=== PATIENT | female | born 1950 | race Caucasian/White ===

== ENCOUNTER 2023-05-09 07:00 | Inpatient (IN) | payer MEDICARE, OTHER, SELFPAY ==
[~2023-05-09] VITALS: Ht 160 cm; Wt 60.2 kg
[2023-05-09] MEDS ORDERED: PRED20TA PO (07:11)
[2023-05-09] MEDS ORDERED: FUROSEMIDE 20MG/2ML VIAL IV ONE ×2 (09:30→12:00)
[2023-05-09] MEDS ORDERED: DIGOXIN INJ 0.5 MG/2 ML AMP IV STA ×2 (09:30→15:29)
[2023-05-09] MEDS: METOPROLOL 5 MG/5 ML VIAL IV SCH ×3 (09:42→11:43)
[2023-05-09 09:49] LABS: BASO % 0.2 % (0.0-1.0); EOS % 0.1 % (0.0-3.0); HEMATOCRIT 52.4 % (36.0-47.0); HEMOGLOBIN 16.7 g/dl (12.0-15.5); LYMPH % 23.2 % (24.0-44.0); MEAN CORPUSCULAR HEMOGLOBIN 29.5 pg (27.0-33.0); MEAN CORPUSCULAR HGB CONC 31.9 g/dl (32.0-36.5); MEAN CORPUSCULAR VOLUME 92.6 fl (80.0-96.0); MONO # 1.2 10^3/uL (0.0-0.8); MONO % 9.4 % (2.0-8.0); NEUTROPHILS # 8.7 10^3/uL (1.5-8.5); NEUTROPHILS % 66.4 % (36.0-66.0); PLATELET COUNT, AUTOMATED 291 10^3/uL (150-450); RED BLOOD COUNT 5.66 10^6/uL (4.00-5.40)
[2023-05-09] MEDS ORDERED: ISOVUE-370 76% 100ML VIAL As Ordered ONE (09:55)
[2023-05-09 09:56] LABS: INR 1.21; PROTHROMBIN TIME 14.9 SECONDS (12.5-14.5)
[2023-05-09 10:08] LABS: CK-MB VALUE MASS 2.3 NG/ML (<3.6)
[2023-05-09 10:12] LABS: THYROID STIMULATING HORMONE 1.293 uIU/ML (0.55-4.78); THYROXINE (T4) 8.9 UG/DL (4.5-10.9)
[2023-05-09] MEDS ORDERED: MED REC IN PROGRESS XX SCH (10:15)
[2023-05-09 10:17] LABS: MB/CK RELATIVE INDEX 3.48 (< OR =4)
[2023-05-09] MEDS ORDERED: MED REC CURRENTLY UNOBTAINABLE XX SCH (10:20)
[2023-05-09] MEDS ORDERED: FERR325T82 PO (12:26)
[2023-05-09] MEDS ORDERED: FISH1CAP26 PO (12:26)
[2023-05-09] MEDS ORDERED: HOME MED LIST COMPLETE! XX SCH (12:35)
[2023-05-09 16:32] LABS: MAGNESIUM LEVEL 2.2 MG/DL (1.8-2.4)
[2023-05-09 16:33] LABS: BLOOD UREA NITROGEN 38 MG/DL (9-23); CALCIUM LEVEL 9.4 MG/DL (8.3-10.6); CARBON DIOXIDE LEVEL 28 MMOL/L (20-31); CHLORIDE LEVEL 104 MMOL/L (98-107); CREATININE FOR GFR 0.69 MG/DL (0.55-1.30); GLOMERULAR FILTRATION RATE > 60.0 (>39); GLUCOSE, FASTING 116 MG/DL (74-106); POTASSIUM SERUM 3.6 MMOL/L (3.5-5.1); SODIUM LEVEL 141 MMOL/L (136-145)
[2023-05-09 16:37] LABS: FREE T4 1.37 NG/DL (0.89-1.76)
[2023-05-09] MEDS ORDERED: POTASSIUM CHLORIDE 10MEQ SR TABLET PO ONE (16:55)
[2023-05-09] MEDS ORDERED: FUROSEMIDE 40MG/4ML VIAL IV ONE (17:00)
[2023-05-09] MEDS: METOPROLOL TART 25 MG TABLET PO SCH (17:35)
[2023-05-09] MEDS: APIXABAN 5 MG TAB (ELIQUIS) PO SCH (22:05)
[2023-05-09 23:06] VITALS: BP 150/88; TEMP 97.6; O2SAT 98
[2023-05-10] MEDS: METOPROLOL TART 25 MG TABLET PO SCH ×4 (00:43→17:59)
[2023-05-10 04:00] VITALS: BP 130/82; TEMP 98.2; O2SAT 96
[2023-05-10 06:15] LABS: HEMATOCRIT 49.9 % (36.0-47.0); HEMOGLOBIN 15.8 g/dl (12.0-15.5); MEAN CORPUSCULAR HEMOGLOBIN 29.3 pg (27.0-33.0); MEAN CORPUSCULAR HGB CONC 31.7 g/dl (32.0-36.5); MEAN CORPUSCULAR VOLUME 92.4 fl (80.0-96.0); PLATELET COUNT, AUTOMATED 243 10^3/uL (150-450); WHITE BLOOD COUNT 14.3 10^3/uL (4.0-10.0)
[2023-05-10 06:42] LABS: BLOOD UREA NITROGEN 39 MG/DL (9-23); CALCIUM LEVEL 9.4 MG/DL (8.3-10.6); CARBON DIOXIDE LEVEL 31 MMOL/L (20-31); CHLORIDE LEVEL 104 MMOL/L (98-107); CREATININE FOR GFR 0.83 MG/DL (0.55-1.30); GLOMERULAR FILTRATION RATE > 60.0 (>39); GLUCOSE, FASTING 97 MG/DL (74-106); MAGNESIUM LEVEL 2.2 MG/DL (1.8-2.4); POTASSIUM SERUM 4.3 MMOL/L (3.5-5.1); SODIUM LEVEL 143 MMOL/L (136-145)
[2023-05-10 08:00] VITALS: BP 153/75; TEMP 97.6; O2SAT 93
[2023-05-10] MEDS: APIXABAN 5 MG TAB (ELIQUIS) PO SCH ×2 (08:34→21:02)
[2023-05-10] MEDS: DIGOXIN 0.125 MG TAB PO SCH (08:34)
[2023-05-10] MEDS ORDERED: ELIQ5TAB PO (09:41)
[2023-05-10] MEDS ORDERED: FUROSEMIDE 40MG/4ML VIAL IV ONE (10:00)
[2023-05-10 11:38] VITALS: BP 136/80; TEMP 98.2; O2SAT 90
[2023-05-10 16:00] VITALS: BP 110/65; TEMP 97.6; O2SAT 93
[2023-05-10 19:23] VITALS: BP 92/62; TEMP 98.2; O2SAT 92
[2023-05-11] VITALS (7 sets, daily range): BP systolic 100–115; BP diastolic 55–76; TEMP 97–97.6; O2SAT 90–98
[2023-05-11] MEDS: METOPROLOL TART 25 MG TABLET PO SCH ×4 (05:09→21:19)
[2023-05-11 06:34] LABS: BASO % 0.2 % (0.0-1.0); EOS # 0.1 10^3/uL (0.0-0.5); EOS % 0.9 % (0.0-3.0); HEMATOCRIT 51.3 % (36.0-47.0); HEMOGLOBIN 16.6 g/dl (12.0-15.5); LYMPH # 3.1 10^3/uL (1.5-5.0); LYMPH % 23.9 % (24.0-44.0); MEAN CORPUSCULAR HEMOGLOBIN 29.5 pg (27.0-33.0); MEAN CORPUSCULAR HGB CONC 32.4 g/dl (32.0-36.5); MEAN CORPUSCULAR VOLUME 91.1 fl (80.0-96.0); MONO # 1.3 10^3/uL (0.0-0.8); MONO % 9.7 % (2.0-8.0); NEUTROPHILS # 8.5 10^3/uL (1.5-8.5); NEUTROPHILS % 64.8 % (36.0-66.0); PLATELET COUNT, AUTOMATED 232 10^3/uL (150-450); RED BLOOD COUNT 5.63 10^6/uL (4.00-5.40); WHITE BLOOD COUNT 13.1 10^3/uL (4.0-10.0)
[2023-05-11 06:59] LABS: BLOOD UREA NITROGEN 50 MG/DL (9-23); CALCIUM LEVEL 9.3 MG/DL (8.3-10.6); CARBON DIOXIDE LEVEL 34 MMOL/L (20-31); CHLORIDE LEVEL 101 MMOL/L (98-107); CREATININE FOR GFR 0.88 MG/DL (0.55-1.30); GLOMERULAR FILTRATION RATE > 60.0 (>39); GLUCOSE, FASTING 96 MG/DL (74-106); MAGNESIUM LEVEL 2.2 MG/DL (1.8-2.4); POTASSIUM SERUM 3.7 MMOL/L (3.5-5.1); SODIUM LEVEL 141 MMOL/L (136-145)
[2023-05-11] MEDS: DIGOXIN 0.125 MG TAB PO SCH (08:29)
[2023-05-11] MEDS: APIXABAN 5 MG TAB (ELIQUIS) PO SCH ×2 (08:29→21:18)
[2023-05-11] MEDS ORDERED: METOPROLOL TART 25 MG TABLET PO SCH (09:00)
[2023-05-11] MEDS: TORSEMIDE 10 MG TABLET PO SCH (10:04)
[2023-05-12 03:23] VITALS: BP 127/62; TEMP 97.8; O2SAT 96
[2023-05-12] MEDS: METOPROLOL TART 25 MG TABLET PO SCH ×2 (03:28→09:39)
[2023-05-12 06:19] LABS: BASO % 0.2 % (0.0-1.0); EOS # 0.2 10^3/uL (0.0-0.5); EOS % 1.7 % (0.0-3.0); HEMATOCRIT 50.3 % (36.0-47.0); LYMPH # 2.6 10^3/uL (1.5-5.0); MEAN CORPUSCULAR HEMOGLOBIN 29.3 pg (27.0-33.0); MEAN CORPUSCULAR HGB CONC 31.8 g/dl (32.0-36.5); MEAN CORPUSCULAR VOLUME 92.1 fl (80.0-96.0); MONO # 1.2 10^3/uL (0.0-0.8); MONO % 10.8 % (2.0-8.0); NEUTROPHILS # 7.2 10^3/uL (1.5-8.5); NEUTROPHILS % 63.8 % (36.0-66.0); PLATELET COUNT, AUTOMATED 219 10^3/uL (150-450); RED BLOOD COUNT 5.46 10^6/uL (4.00-5.40); WHITE BLOOD COUNT 11.3 10^3/uL (4.0-10.0)
[2023-05-12 06:48] LABS: BLOOD UREA NITROGEN 42 MG/DL (9-23); CALCIUM LEVEL 9.2 MG/DL (8.3-10.6); CARBON DIOXIDE LEVEL 35 MMOL/L (20-31); CHLORIDE LEVEL 101 MMOL/L (98-107); CREATININE FOR GFR 0.87 MG/DL (0.55-1.30); GLOMERULAR FILTRATION RATE > 60.0 (>39); GLUCOSE, FASTING 93 MG/DL (74-106); POTASSIUM SERUM 3.8 MMOL/L (3.5-5.1); SODIUM LEVEL 141 MMOL/L (136-145)
[2023-05-12 07:32] VITALS: BP 118/70; TEMP 97.6; O2SAT 97
[2023-05-12 09:39] VITALS: BP 118/70
[2023-05-12] MEDS: TORSEMIDE 10 MG TABLET PO SCH (09:39)
[2023-05-12] MEDS: APIXABAN 5 MG TAB (ELIQUIS) PO SCH (09:39)
[2023-05-12] MEDS: DIGOXIN 0.125 MG TAB PO SCH (09:39)
[2023-05-12] MEDS ORDERED: DIGO0.123 PO (10:38)
[2023-05-12] MEDS ORDERED: METO50TA7 PO (10:38)
[2023-05-12] MEDS ORDERED: TORS10TA3 PO (10:38)
== END 2023-05-12 12:10 | disposition home or self-care (01) | DRG 291 ==
LOC: M ED 07:00 → EDBEDREQTM 14:55 → M ED INP 15:17 → M PCU 23:00
PROVIDERS: ADMIT Internal Medicine; ATTEND Internal Medicine
DX: I11.0 Hypertensive heart disease with heart failure (principal); I50.33 Acute on chronic diastolic (congestive) heart failure; J98.11 Atelectasis; J45.20 Mild intermittent asthma, uncomplicated; I48.91 Unspecified atrial fibrillation; D72.829 Elevated white blood cell count, unspecified; D50.9 Iron deficiency anemia, unspecified; I27.20 Pulmonary hypertension, unspecified; Z88.6 Allergy status to analgesic agent; Z79.52 Long term (current) use of systemic steroids; Z79.899 Other long term (current) drug therapy

== ENCOUNTER → 2023-07-05 | Outpatient (CLI) | payer MEDICARE, OTHER ==
[~2023-07-05] MED LIST: DIGO0.123 PO; ELIQ5TAB PO; FERR325T82 PO; FISH1CAP26 PO; METO50TA7 PO; PRED20TA PO; TORS10TA3 PO
[2023-07-05 10:52] LABS: ALBUMIN 3.7 G/DL (3.2-5.2); ALKALINE PHOSPHATASE 68 U/L (46-116); ALT/SGPT 20 U/L (7.0-40); AST/SGOT 17 U/L (<34); BILIRUBIN,TOTAL 1.5 MG/DL (0.3-1.2); BLOOD UREA NITROGEN 27 MG/DL (9-23); CALCIUM LEVEL 9.7 MG/DL (8.3-10.6); CARBON DIOXIDE LEVEL 30 MMOL/L (20-31); CHLORIDE LEVEL 105 MMOL/L (98-107); CHOLESTEROL LEVEL 233 MG/DL (<200); CHOLESTEROL RISK RATIO 5.83 (<5); CREATININE FOR GFR 0.76 MG/DL (0.55-1.30); GLOMERULAR FILTRATION RATE > 60.0 (>39); GLUCOSE, FASTING 108 MG/DL (74-106); HDL CHOLESTEROL 39.9 MG/DL (>40); LDL CHOLESTEROL 169.5 MG/DL (<100); NON-HDL-C 193.1 MG/DL; POTASSIUM SERUM 4.2 MMOL/L (3.5-5.1); SODIUM LEVEL 143 MMOL/L (136-145); TOTAL PROTEIN 6.8 G/DL (5.7-8.2); TRIGLYCERIDES LEVEL 118 MG/DL (<150)
== END ==
LOC: M LAB 10:03
PROVIDERS: ATTEND Internal Medicine Cardiovascular Disease
DX: I50.32 Chronic diastolic (congestive) heart failure (principal); I11.0 Hypertensive heart disease with heart failure; I27.81 Cor pulmonale (chronic); R94.31 Abnormal electrocardiogram [ECG] [EKG]

== ENCOUNTER → 2023-08-08 | Outpatient (REF) | payer MEDICARE, OTHER | LOC: M LAB REF 16:08 | PROVIDERS: ATTEND Nurse Practitioner Family | DX: I50.43 Acute on chronic combined systolic (congestive) and diastolic (congestive) heart failure (principal) ==

== ENCOUNTER → 2023-10-18 | Outpatient (CLI) | payer MEDICARE, OTHER ==
[2023-10-18 09:53] LABS: BASO % 0.4 % (0.0-1.0); EOS # 0.1 10^3/uL (0.0-0.5); EOS % 1.3 % (0.0-3.0); HEMATOCRIT 46.3 % (36.0-47.0); HEMOGLOBIN 14.8 g/dl (12.0-15.5); LYMPH # 2.4 10^3/uL (1.5-5.0); LYMPH % 32.5 % (24.0-44.0); MEAN CORPUSCULAR HEMOGLOBIN 28.7 pg (27.0-33.0); MEAN CORPUSCULAR VOLUME 89.7 fl (80.0-96.0); MONO # 0.7 10^3/uL (0.0-0.8); MONO % 8.7 % (2.0-8.0); NEUTROPHILS # 4.2 10^3/uL (1.5-8.5); NEUTROPHILS % 56.8 % (36.0-66.0); PLATELET COUNT, AUTOMATED 170 10^3/uL (150-450); RED BLOOD COUNT 5.16 10^6/uL (4.00-5.40); WHITE BLOOD COUNT 7.4 10^3/uL (4.0-10.0)
[2023-10-18 10:21] LABS: ALBUMIN 3.6 G/DL (3.2-5.2); ALKALINE PHOSPHATASE 75 U/L (46-116); ALT/SGPT 24 U/L (7.0-40); AST/SGOT 20 U/L (<34); BILIRUBIN,DIRECT 0.4 MG/DL (<0.4); BILIRUBIN,TOTAL 1.2 MG/DL (0.3-1.2); BLOOD UREA NITROGEN 24 MG/DL (9-23); CARBON DIOXIDE LEVEL 33 MMOL/L (20-31); CHLORIDE LEVEL 106 MMOL/L (98-107); CHOLESTEROL LEVEL 142 MG/DL (<200); CHOLESTEROL RISK RATIO 4.26 (<5); CREATININE FOR GFR 0.62 MG/DL (0.55-1.30); GLOMERULAR FILTRATION RATE > 60.0 (>39); GLUCOSE, FASTING 98 MG/DL (74-106); HDL CHOLESTEROL 33.3 MG/DL (>40); LDL CHOLESTEROL 86.7 MG/DL (<100); NON-HDL-C 108.7 MG/DL; PHOSPHORUS LEVEL 3.1 MG/DL (2.4-5.1); SODIUM LEVEL 142 MMOL/L (136-145); TOTAL PROTEIN 6.4 G/DL (5.7-8.2); TRIGLYCERIDES LEVEL 110 MG/DL (<150)
== END ==
LOC: M LAB 09:16
PROVIDERS: ATTEND Internal Medicine Cardiovascular Disease
DX: I50.32 Chronic diastolic (congestive) heart failure (principal); I11.0 Hypertensive heart disease with heart failure; I48.19 Other persistent atrial fibrillation; I35.9 Nonrheumatic aortic valve disorder, unspecified; E78.00 Pure hypercholesterolemia, unspecified

== ENCOUNTER → 2023-10-24 | Outpatient (CLI) | payer MEDICARE, OTHER | LOC: M CARPUL 08:06 | PROVIDERS: ATTEND Internal Medicine Cardiovascular Disease | DX: R06.02 Shortness of breath (principal) ==

== ENCOUNTER → 2023-11-26 | Outpatient (CLI) | payer MEDICARE, OTHER ==
[2023-11-26 12:06] LABS: BASO % 0.3 % (0.0-1.0); EOS # 0.2 10^3/uL (0.0-0.5); EOS % 1.7 % (0.0-3.0); HEMATOCRIT 45.5 % (36.0-47.0); HEMOGLOBIN 14.4 g/dl (12.0-15.5); LYMPH # 2.6 10^3/uL (1.5-5.0); LYMPH % 27.1 % (24.0-44.0); MEAN CORPUSCULAR HGB CONC 31.6 g/dl (32.0-36.5); MEAN CORPUSCULAR VOLUME 91.5 fl (80.0-96.0); MONO # 0.8 10^3/uL (0.0-0.8); MONO % 8.2 % (2.0-8.0); NEUTROPHILS # 5.9 10^3/uL (1.5-8.5); NEUTROPHILS % 62.4 % (36.0-66.0); PLATELET COUNT, AUTOMATED 261 10^3/uL (150-450); RED BLOOD COUNT 4.97 10^6/uL (4.00-5.40); WHITE BLOOD COUNT 9.4 10^3/uL (4.0-10.0)
[2023-11-26 12:28] LABS: BLOOD UREA NITROGEN 21 MG/DL (9-23); CALCIUM LEVEL 8.9 MG/DL (8.3-10.6); CARBON DIOXIDE LEVEL 34 MMOL/L (20-31); CHLORIDE LEVEL 106 MMOL/L (98-107); CREATININE FOR GFR 0.61 MG/DL (0.55-1.30); GLOMERULAR FILTRATION RATE > 60.0 (>39); GLUCOSE, FASTING 99 MG/DL (74-106); POTASSIUM SERUM 4.1 MMOL/L (3.5-5.1); SODIUM LEVEL 141 MMOL/L (136-145)
== END ==
LOC: M LAB 11:21
PROVIDERS: ATTEND Internal Medicine Cardiovascular Disease
DX: I50.30 Unspecified diastolic (congestive) heart failure (principal); R06.02 Shortness of breath

== ENCOUNTER → 2023-12-20 | Outpatient (CLI) | payer MEDICARE, OTHER ==
[2023-12-20 11:35] LABS: BASO % 0.4 % (0.0-1.0); EOS # 0.2 10^3/uL (0.0-0.5); EOS % 2.3 % (0.0-3.0); HEMATOCRIT 46.6 % (36.0-47.0); HEMOGLOBIN 14.8 g/dl (12.0-15.5); LYMPH # 2.3 10^3/uL (1.5-5.0); LYMPH % 30.5 % (24.0-44.0); MEAN CORPUSCULAR HEMOGLOBIN 29.2 pg (27.0-33.0); MEAN CORPUSCULAR HGB CONC 31.8 g/dl (32.0-36.5); MEAN CORPUSCULAR VOLUME 92.1 fl (80.0-96.0); MONO # 0.6 10^3/uL (0.0-0.8); MONO % 7.7 % (2.0-8.0); NEUTROPHILS # 4.4 10^3/uL (1.5-8.5); PLATELET COUNT, AUTOMATED 174 10^3/uL (150-450); RED BLOOD COUNT 5.06 10^6/uL (4.00-5.40); WHITE BLOOD COUNT 7.5 10^3/uL (4.0-10.0)
[2023-12-20 11:58] LABS: BLOOD UREA NITROGEN 21 MG/DL (9-23); CALCIUM LEVEL 9.9 MG/DL (8.3-10.6); CARBON DIOXIDE LEVEL 32 MMOL/L (20-31); CHLORIDE LEVEL 105 MMOL/L (98-107); CREATININE FOR GFR 0.64 MG/DL (0.55-1.30); GLOMERULAR FILTRATION RATE > 60.0 (>39); GLUCOSE, FASTING 93 MG/DL (74-106); POTASSIUM SERUM 4.1 MMOL/L (3.5-5.1); SODIUM LEVEL 139 MMOL/L (136-145)
== END ==
LOC: M LAB 10:56
PROVIDERS: ATTEND Internal Medicine Cardiovascular Disease
DX: R06.02 Shortness of breath (principal); I50.30 Unspecified diastolic (congestive) heart failure

== ENCOUNTER → 2024-05-30 | Outpatient (CLI) | payer MEDICARE, OTHER | LOC: M EKG 08:52 | PROVIDERS: ATTEND Internal Medicine Cardiovascular Disease | DX: I48.19 Other persistent atrial fibrillation (principal) ==

== ENCOUNTER → 2024-06-05 | Outpatient (CLI) | payer MEDICARE, OTHER ==
[2024-06-05 11:52] LABS: BASO % 0.4 % (0.0-1.0); EOS # 0.2 10^3/uL (0.0-0.5); EOS % 3.8 % (0.0-3.0); HEMATOCRIT 41.1 % (36.0-47.0); HEMOGLOBIN 12.9 g/dl (12.0-15.5); LYMPH % 18.4 % (24.0-44.0); MEAN CORPUSCULAR HEMOGLOBIN 27.9 pg (27.0-33.0); MEAN CORPUSCULAR HGB CONC 31.4 g/dl (32.0-36.5); MEAN CORPUSCULAR VOLUME 88.8 fl (80.0-96.0); MONO # 0.6 10^3/uL (0.0-0.8); MONO % 10.5 % (2.0-8.0); NEUTROPHILS # 3.5 10^3/uL (1.5-8.5); NEUTROPHILS % 66.7 % (36.0-66.0); PLATELET COUNT, AUTOMATED 164 10^3/uL (150-450); RED BLOOD COUNT 4.63 10^6/uL (4.00-5.40); WHITE BLOOD COUNT 5.2 10^3/uL (4.0-10.0)
[2024-06-05 12:22] LABS: ALBUMIN 3.8 G/DL (3.2-5.2); BLOOD UREA NITROGEN 30 MG/DL (9-23); CALCIUM LEVEL 10.2 MG/DL (8.3-10.6); CARBON DIOXIDE LEVEL 33 MMOL/L (20-31); CHLORIDE LEVEL 103 MMOL/L (98-107); CREATININE FOR GFR 0.66 MG/DL (0.55-1.30); GLOMERULAR FILTRATION RATE > 60.0 (>39); GLUCOSE, FASTING 91 MG/DL (74-106); MAGNESIUM LEVEL 1.8 MG/DL (1.8-2.4); PHOSPHORUS LEVEL 3.7 MG/DL (2.4-5.1); POTASSIUM SERUM 3.7 MMOL/L (3.5-5.1); SODIUM LEVEL 138 MMOL/L (136-145)
== END ==
LOC: M LAB 11:17
PROVIDERS: ATTEND Internal Medicine Cardiovascular Disease
DX: I50.32 Chronic diastolic (congestive) heart failure (principal)

== ENCOUNTER → 2024-06-18 | Outpatient (CLI) | payer MEDICARE, OTHER | LOC: M PLAIMG 10:26 | PROVIDERS: ATTEND Internal Medicine Cardiovascular Disease | DX: I50.32 Chronic diastolic (congestive) heart failure (principal); I27.29 Other secondary pulmonary hypertension; I08.1 Rheumatic disorders of both mitral and tricuspid valves ==

== ENCOUNTER → 2025-01-08 | Outpatient (CLI) | payer MEDICARE, OTHER ==
[2025-01-08 12:39] LABS: BASO % 0.5 % (0.0-1.0); EOS # 0.4 10^3/uL (0.0-0.5); EOS % 6.6 % (0.0-3.0); HEMATOCRIT 43.6 % (36.0-47.0); LYMPH # 1.7 10^3/uL (1.5-5.0); MEAN CORPUSCULAR HEMOGLOBIN 29.5 pg (27.0-33.0); MEAN CORPUSCULAR HGB CONC 32.1 g/dl (32.0-36.5); MEAN CORPUSCULAR VOLUME 91.8 fl (80.0-96.0); MONO # 0.6 10^3/uL (0.0-0.8); MONO % 11.3 % (2.0-8.0); NEUTROPHILS # 2.9 10^3/uL (1.5-8.5); NEUTROPHILS % 51.4 % (36.0-66.0); PLATELET COUNT, AUTOMATED 142 10^3/uL (150-450); RED BLOOD COUNT 4.75 10^6/uL (4.00-5.40); WHITE BLOOD COUNT 5.6 10^3/uL (4.0-10.0)
[2025-01-08 13:10] LABS: ALBUMIN 4.1 G/DL (3.2-5.2); BILIRUBIN,TOTAL 1.1 MG/DL (0.3-1.2); CALCIUM LEVEL 9.7 MG/DL (8.3-10.6); CREATININE FOR GFR 0.78 MG/DL (0.55-1.30); GLOMERULAR FILTRATION RATE 79.7 (>39); POTASSIUM SERUM 4.4 MMOL/L (3.5-5.1); TOTAL PROTEIN 7.6 G/DL (5.7-8.2)
== END ==
LOC: M LAB 11:19
PROVIDERS: ATTEND Registered Nurse
DX: I50.32 Chronic diastolic (congestive) heart failure (principal)

== ENCOUNTER → 2025-07-13 | Outpatient (CLI) | payer MEDICARE, OTHER ==
[2025-07-13 12:59] LABS: BASO # 0.0 10^3/uL (0.0-0.2); BASO % 0.7 % (0.0-1.0); EOS # 0.4 10^3/uL (0.0-0.5); EOS % 6.2 % (0.0-3.0); LYMPH # 1.5 10^3/uL (1.5-5.0); LYMPH % 25.0 % (24.0-44.0); MONO # 0.6 10^3/uL (0.0-0.8); MONO % 9.8 % (2.0-8.0); NEUTROPHILS # 3.6 10^3/uL (1.5-8.5); NEUTROPHILS % 58.1 % (36.0-66.0); PLATELET COUNT, AUTOMATED 151 10^3/uL (150-450)
[2025-07-13 13:30] LABS: ALT/SGPT 26.0 U/L (7.0-40); AST/SGOT 26.0 U/L (<34); CALCIUM LEVEL 9.6 MG/DL (8.3-10.6); CARBON DIOXIDE LEVEL 31.0 MMOL/L (20-31); CHLORIDE LEVEL 101.0 MMOL/L (98-107); CREATININE FOR GFR 0.79 MG/DL (0.55-1.30); GLOMERULAR FILTRATION RATE 78.4 (>39); MAGNESIUM LEVEL 1.8 MG/DL (1.8-2.4); POTASSIUM SERUM 3.9 MMOL/L (3.5-5.1); SODIUM LEVEL 142.0 MMOL/L (136-145)
== END ==
LOC: M LAB 11:47
PROVIDERS: ATTEND Registered Nurse
DX: I50.32 Chronic diastolic (congestive) heart failure (principal); I48.19 Other persistent atrial fibrillation